=== PATIENT | male | born 1995 | race Caucasian/White ===

== ENCOUNTER 2023-12-04 08:53 | Emergency (ER) | payer OTHER ==
[~2023-12-04] VITALS: Ht 177.8 cm; Wt 78.9 kg
[2023-12-04 08:56] VITALS: TEMP 97.6
[2023-12-04 10:51] LABS: BASO # 0.1 10^3/uL (0.0-0.2); BASO % 1.4 % (0.0-1.0); EOS # 0.2 10^3/uL (0.0-0.5); EOS % 3.6 % (0.0-3.0); HEMATOCRIT 41.1 % (42.0-52.0); HEMOGLOBIN 14.3 g/dl (13.5-17.5); LYMPH % 34.1 % (24.0-44.0); MEAN CORPUSCULAR HEMOGLOBIN 29.9 pg (27.0-33.0); MEAN CORPUSCULAR HGB CONC 34.8 g/dl (32.0-36.5); MEAN CORPUSCULAR VOLUME 85.8 fl (80.0-96.0); MONO # 0.4 10^3/uL (0.0-0.8); MONO % 7.2 % (2.0-8.0); NEUTROPHILS # 3.1 10^3/uL (1.5-8.5); NEUTROPHILS % 53.4 % (36.0-66.0); PLATELET COUNT, AUTOMATED 323 10^3/uL (150-450); RED BLOOD COUNT 4.79 10^6/uL (4.30-6.10); WHITE BLOOD COUNT 5.8 10^3/uL (4.0-10.0)
[2023-12-04 11:11] LABS: BLOOD UREA NITROGEN 13 MG/DL (9-23); CALCIUM LEVEL 9.9 MG/DL (8.5-10.1); CARBON DIOXIDE LEVEL 31 MMOL/L (20-31); CHLORIDE LEVEL 108 MMOL/L (98-107); CREATININE FOR GFR 0.82 MG/DL (0.70-1.30); GLOMERULAR FILTRATION RATE > 60.0 (>60); GLUCOSE, FASTING 90 MG/DL (60-100); POTASSIUM SERUM 4.8 MMOL/L (3.5-5.1); SODIUM LEVEL 142 MMOL/L (136-145)
[2023-12-04 13:37] VITALS: BP 133/78; O2SAT 99
[2023-12-04 14:15] LABS: GC DNA AMPLIFICATION NEGATIVE (NEGATIVE)
[2023-12-04] MEDS ORDERED: CIPR-249 PO (15:00)
== END 2023-12-04 15:21 | disposition home or self-care (01) ==
LOC: M ED 08:53
DX: N30.01 Acute cystitis with hematuria (principal); Z88.2 Allergy status to sulfonamides

== ENCOUNTER → 2024-10-14 | Outpatient (CLI) | payer OTHER ==
[~2024-10-14] MED LIST: CIPR-249 PO
== END ==
LOC: M RAD 15:09
PROVIDERS: ATTEND Internal Medicine Critical Care Medicine
DX: R91.1 Solitary pulmonary nodule (principal); N62 Hypertrophy of breast; S22.42XD Multiple fractures of ribs, left side, subsequent encounter for fracture with routine healing; R59.0 Localized enlarged lymph nodes